=== PATIENT | female | born 2005 | race Caucasian/White ===

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

== ENCOUNTER 2023-05-05 20:22 | Emergency (ER) | payer OTHER ==
[~2023-05-05] VITALS: Ht 162.6 cm; Wt 59.0 kg
[~2023-05-05 20:22] MED LIST changes: +BACI-418 TP; -BACI1PAC6 TP; +HYD1C TP
[2023-05-05 20:54] VITALS: BP 103/66; PULSE 66; RESP 20; TEMP 97; O2SAT 100
--- NOTE | 2023-05-05 21:02 | NUR ---
PT IS IN THE LOBBY NOW
[2023-05-05 21:05] VITALS: O2SAT 100
--- NOTE | 2023-05-05 23:20 | NUR ---
TO BED AMBULATORY
--- NOTE | 2023-05-05 23:41 | NUR ---
17 YO F BIB SELF C/O RASH TO BILATERAL THIGHS ANTERIOR AND POSTERIOR, ZOE AREA, AND POSTERIOR BACK X TODAY. PT COMPLAINS OF ITCHING TO RASH AREAS. AXO4. DENIES SOB. CALL LIGHT WITHIN REACH. NO KNOWN ALLERGIES NO MED HX
--- NOTE | 2023-05-06 01:07 | NUR ---
DR TAI AT BEDSIDE
[2023-05-06] MEDS ORDERED: predniSONE 20 MG TAB PO ONE (01:20)
[2023-05-06] MEDS ORDERED: DIPH25TA53 PO (01:22)
[2023-05-06] MEDS ORDERED: PRED20TA5 PO (01:22)
== END 2023-05-06 01:44 | disposition home or self-care (01) ==
LOC: MED 20:22
DX: L50.9 Urticaria, unspecified (principal); Z79.899 Other long term (current) drug therapy
CPT/HCPCS: 99283; J7512; Q0163

== ENCOUNTER 2023-06-21 18:48 | Emergency (ER) | payer OTHER ==
[~2023-06-21] VITALS: Ht 162.6 cm; Wt 54.4 kg
[~2023-06-21 18:48] MED LIST changes: +DIPH25TA53 PO; +PRED20TA5 PO
[2023-06-21 18:55] VITALS: BP 112/72; PULSE 77; RESP 18; TEMP 97.7; O2SAT 98
[2023-06-21 19:47] LABS: BASOPHILS % (AUTO) 0.2 % (0.0-2.0); EOSINOPHILS % (AUTO) 0.5 % (0.0-4.0); HEMATOCRIT 41.6 % (36-48); HEMOGLOBIN 13.7 g/dL (12.0-16.0); LYMPHOCYTES # (AUTO) 1.6 K/uL (2.5-16.5); LYMPHOCYTES % (AUTO) 17.9 % (20.5-51.1); MEAN CORPUSCULAR HEMOGLOBIN 28 pg (27-31); MEAN CORPUSCULAR HGB CONC 33 g/dL (33-37); MEAN CORPUSCULAR VOLUME 84.7 fL (80-94); MONOCYTES # (AUTO) 0.8 K/uL (0.8-1.0); MONOCYTES % (AUTO) 9.2 % (1.7-9.3); NEUTROPHILS # (AUTO) 6.6 K/uL (1.8-7.7); NEUTROPHILS % (AUTO) 72.2 % (42.2-75.2); PLATELET COUNT (AUTO) 337 K/uL (140-450); RED BLOOD CELL COUNT(AUTO) 4.92 MIL/uL (4.20-5.40); RED CELL DISTRIBUTION WIDTH 14.2 % (11.6-13.7); WHITE BLOOD COUNT (AUTO) 9.2 K/uL (4.5-11.0)
[2023-06-21 20:35] LABS: ALBUMIN 4.5 g/dL (3.4-5.0); ANION GAP 14.2 (8-16); CALCIUM 9.8 mg/dL (8.5-10.1); CARBON DIOXIDE 26.2 mmol/L (21-32); CREATININE 0.9 mg/dL (0.6-1.3); POTASSIUM 3.4 mmol/L (3.5-5.1); TOTAL BILIRUBIN 1.3 mg/dL (0.0-1.0); TOTAL PROTEIN, SERUM 8.8 g/dL (6.4-8.2)
[2023-06-21 21:00] VITALS: BP 112/72; PULSE 77; RESP 18; TEMP 97.7; O2SAT 98
[2023-06-22] MEDS ORDERED: NAPR-54 PO (02:05)
== END 2023-06-22 02:14 | disposition left against medical advice (07) ==
LOC: MED 18:48
DX: K80.20 Calculus of gallbladder without cholecystitis without obstruction (principal); R74.01 Elevation of levels of liver transaminase levels; Z79.899 Other long term (current) drug therapy
CPT/HCPCS: 36415; 74176; 76705; 80053; 81002; 81025; 83690; 85025; 99284; Q0092

== ENCOUNTER 2023-09-23 23:55 | Emergency (ER) | payer OTHER ==
[~2023-09-23] VITALS: Ht 157.5 cm; Wt 59.0 kg
[~2023-09-23 23:55] MED LIST changes: +NAPR-54 PO
[2023-09-24 00:05] VITALS: BP 106/71; PULSE 83; RESP 17; TEMP 97.9; O2SAT 99
[2023-09-24 01:31] LABS: APPEARANCE,URINE CLEAR (CLEAR); BILIRUBIN,URINE NEGATIVE (NEGATIVE); BLOOD, URINE NEGATIVE (NEGATIVE); COLOR,URINE YELLOW (YELLOW); LEUKOCYTE ESTERASE ,URINE NEGATIVE (NEGATIVE); NITRITE, URINE NEGATIVE (NEGATIVE); PH,URINE 7.5 (5.0-9.0); PROTEIN,URINE TRACE (NEGATIVE); UGLUCOSE NEGATIVE (NEGATIVE)
[2023-09-24] MEDS ORDERED: ONDANSETRON 4 MG ODT PO ONE (02:20)
[2023-09-24] MEDS ORDERED: ALUMINUM HYD/MAG/SIMETHICONE 30 ML UDC PO ONE (02:20)
[2023-09-24] MEDS ORDERED: FAMO-92 PO (02:25)
[2023-09-24] MEDS ORDERED: ONDA-188 SL (02:25)
== END 2023-09-24 02:51 | disposition home or self-care (01) ==
LOC: MED 23:55
DX: K29.70 Gastritis, unspecified, without bleeding (principal); K21.9 Gastro-esophageal reflux disease without esophagitis; Z79.899 Other long term (current) drug therapy; Z79.1 Long term (current) use of non-steroidal anti-inflammatories (NSAID); Z79.2 Long term (current) use of antibiotics
CPT/HCPCS: 81003; 81025; 93005; 99284; Q0162